=== PATIENT | male | born 1965 | race Caucasian/White ===

== ENCOUNTER 2018-02-03 13:51 | Emergency (ER) | payer BC ==
[2018-02-03 14:42] VITALS: BP 118/76
--- NOTE | 2018-02-03 15:15 | UC ---
FLU HPI - HPI Summary HPI Summary: Pt c/o gradual onset of myalgia, chills, ADAM, cough, "scratchy" throat and fatigue - History of Current Complaint Hx Obtained From: Patient Onset/Duration: Gradual Onset, Lasting Days, Still Present Severity Currently: Mild Severity Initially: Mild Pain Intensity: 0 Associated Signs & Symptoms: Positive: Myalgia, Cough, Sore Throat, Headache Related Hx: Possible Flu/Infectious Exposure - Risk Factors Influenza Risk Factors: Negative <Corrine Borges NP - Last Filed: 02/03/18 15:39> <Amna Ivey - Last Filed: 02/03/18 18:15> - History of Current Complaint Chief Complaint: UCGeneralIllness Stated Complaint: FLU SX'S Time Seen by Provider: 02/03/18 14:51 - Allergy/Home Medications Allergies/Adverse Reactions: Allergies Allergy/AdvReac Type Severity Reaction Status Date / Time No Known Allergies Allergy Verified 11/01/12 14:17 Home Medications: Home Medications Ibuprofen [Goodsense Ibuprofen] 400 mg PO 02/03/18 [History] Metoprolol Tartrate 37.5 mg PO 02/03/18 [History] guaiFENesin [Mucinex] 02/03/18 [History] PMH/Surg Hx/FS Hx/Imm Hx Previously Healthy: Yes Endocrine History: Dyslipidemia Cardiovascular History: Hypertension - Surgical History Surgical History: None - Family History Known Family History: Positive: Cardiac Disease - Social History Occupation: Employed Full-time Lives: With Family Alcohol Use: Occasionally Substance Use Type: None Smoking Status (MU): Never Smoked Tobacco Have You Smoked in the Last Year: No <Corrine Borges NP - Last Filed: 02/03/18 15:39> Review of Systems Constitutional: Fever, Chills, Fatigue Skin: Negative Eyes: Negative ENT: Sore Throat, Sinus Congestion Respiratory: Cough Cardiovascular: Negative Gastrointestinal: Negative Genitourinary: Negative Motor: Negative Neurovascular: Negative Musculoskeletal: Myalgia Neurological: Headache Psychological: Negative Is Patient Immunocompromised?: No All Other Systems Reviewed And Are Negative: Yes <Corrine Borges NP - Last Filed: 02/03/18 15:39> Physical Exam Triage Information Reviewed: Yes Appearance: Ill-Appearing Vital Signs: Initial Vital Signs Temp 98.3 F 02/03/18 14:34 Pulse 55 02/03/18 14:34 Resp 16 02/03/18 14:34 BP 118/76 02/03/18 14:34 Pulse Ox 99 02/03/18 14:34 Vital Signs Reviewed: Yes Eye Exam: Normal ENT Exam: Normal Dental Exam: Normal Neck exam: Normal Respiratory Exam: Normal Cardiovascular Exam: Normal Musculoskeletal Exam: Normal Neurological Exam: Normal Psychological Exam: Normal Skin Exam: Normal <Corrine Borges NP - Last Filed: 02/03/18 15:39> Vital Signs: Initial Vital Signs Temp 98.3 F 02/03/18 14:34 Pulse 55 02/03/18 14:34 Resp 16 02/03/18 14:34 BP 118/76 02/03/18 14:34 Pulse Ox 99 02/03/18 14:34 <Amna Ivey - Last Filed: 02/03/18 18:15> Diagnostics - Laboratory Diagnostic Studies Completed/Ordered: Rapid strep: negative. Rapid flu: negative <Corrine Borges NP - Last Filed: 02/03/18 15:39> Flu Course/Dx - Differential Dx/Diagnosis Differential Diagnosis/HQI/PQRI: Bronchitis, Influenza, Upper Respiratory Infection Provider Diagnoses: viral syndrome <Corrine Borges NP Last Filed: 02/03/18 15:39> Discharge - Sign-Out/Discharge Documenting (check all that apply): Discharge - Billing Disposition and Condition Condition: STABLE Disposition: HOME <Corrine Borges NP - Last Filed: 02/03/18 15:39> - Billing Disposition and Condition Condition: STABLE Disposition: HOME <Amna Ivey - Last Filed: 02/03/18 18:15> - Discharge Plan Condition: Stable Disposition: HOME Patient Education Materials: Viral Syndrome (ED) Referrals: Roxanne Bowman MD [Primary Care Provider] - If Needed Attestation Statement User Type: Provider - I was available for consult. This patient was seen by the GUY. The patient was not presented to, seen by, or examined by me. -Alfie <Amna Ivey - Last Filed: 02/03/18 18:15>
== END 2018-02-03 15:38 | disposition home or self-care (01) ==
LOC: UCCORT 13:51
DX: B34.9 Viral infection, unspecified (principal)
CPT/HCPCS: 87502; 87651; 99201; G0463